=== PATIENT | male | born 1970 | race Caucasian/White ===

== ENCOUNTER 2017-10-12 20:05 | Emergency (ER) | payer OTHER ==
[2017-10-12 20:27] VITALS: BP 123/67; PULSE 79; RESP 18; TEMP 97.9; O2SAT 96
[2017-10-12] MEDS ORDERED: SERO300T PO (20:32)
[2017-10-12 21:03] LABS: AUTOMATED NEUTROPHIL # 3.8 TH/MM3 (1.8-7.7); BASOPHIL % 0.4 % (0.0-2.0); HEMATOCRIT 42.4 % (39.0-51.0); HEMOGLOBIN 15.3 GM/DL (13.0-17.0); LYMPH % 28.3 % (9.0-44.0); LYMPHOCYTE # 1.6 TH/MM3 (1.0-4.8); MEAN CELL VOLUME 101.3 FL (80.0-100.0); MEAN CORPUSCULAR HEMOGLOBIN 36.7 PG (27.0-34.0); MEAN PLATELET VOLUME 6.8 FL (7.0-11.0); MONO % 5.4 % (0.0-8.0); MONOCYTE # 0.3 TH/MM3 (0-0.9); NEUT % 65.9 % (16.0-70.0); PLATELET COUNT 182 TH/MM3 (150-450); RED BLOOD COUNT 4.18 MIL/MM3 (4.50-5.90); RED CELL DISTRIBUTION WIDTH 16.1 % (11.6-17.2); WHITE BLOOD COUNT 5.8 TH/MM3 (4.0-11.0)
[2017-10-12 21:07] LABS: MEAN CORPUSCULAR HGB CONC 36.2 % (32.0-36.0)
--- NOTE | 2017-10-12 21:12 | PD ---
HPI Chief Complaint: Psychiatric Symptoms Time Seen by Provider: 21:02 Travel History International Travel<30 days: No Contact w/Intl Traveler<30days: No Traveled to known affect area: No History of Present Illness HPI 47-year-old male presents to the ED under [facility] act for psychiatric evaluation. Patient states that he is feeling suicidal. He states that he hallucinates and sees shadows. He also states that he hears voices that tell him to kill himself. He states "if I had a gun and shoot myself." Per the [facility] paperwork the patient was kicked out of his sober living facility after he was found to be drinking. States his last drink was around 5 PM today. He states that he is noncompliant with Seroquel for about one month. He complains of sinus congestion and runny nose but denies any other somatic complaints. He denies any chronic health issues. He denies any illicit drug use. He is a current smoker. [facility] Past Medical History Depression: Yes Diminished Hearing: No Past Surgical History Surgical History: No Previous Surgery Social History Alcohol Use: Yes (DAILY ) Tobacco Use: No Substance Use: No Allergies-Medications (Allergen,Severity, Reaction): Coded Allergies: No Known Allergies (Unverified , 10/12/17) Reported Meds & Prescriptions Reported Meds & Active Scripts Active Reported Seroquel (Quetiapine Fumarate) 300 Mg Tab 300 Mg PO DAILY Review of Systems Except as stated in HPI: all other systems reviewed are Neg Physical Exam Narrative GENERAL: Well-nourished, well-developed white male in no acute distress. PSYCHIATRIC: Tearful, cooperative. SKIN: Focused skin assessment warm/dry. HEAD: Normocephalic. EYES: No scleral icterus. No injection or drainage. NECK: Supple, trachea midline. No JVD or lymphadenopathy. CARDIOVASCULAR: Regular rate and rhythm without murmurs, gallops, or rubs. RESPIRATORY: Breath sounds clear and equal bilaterally. No accessory muscle use. GASTROINTESTINAL: Abdomen soft, non-tender, nondistended. Active bowel sounds. MUSCULOSKELETAL: No cyanosis, or edema. BACK: Nontender without obvious deformity. No CVA tenderness. Data Data Last Documented VS Vital Signs Date Time Temp Pulse Resp B/P (MAP) Pulse Ox O2 Delivery O2 Flow Rate FiO2 10/12/17 22:03 73 16 99/56 (70) 10/12/17 20:27 97.9 96 Orders Orders Complete Blood Count With Diff (10/12/17 20:33) Comprehensive Metabolic Panel (10/12/17 20:33) Psych Screen (10/12/17 20:33) Drug Screen, Random Urine (10/12/17 20:33) Alcohol (Ethanol) (10/12/17 20:33) Salicylates (Aspirin) (10/12/17 20:33) Labs Laboratory Tests Test 10/12/17 20:36 White Blood Count 5.8 TH/MM3 Red Blood Count 4.18 MIL/MM3 Hemoglobin 15.3 GM/DL Hematocrit 42.4 % Mean Corpuscular Volume 101.3 FL Mean Corpuscular Hemoglobin 36.7 PG Mean Corpuscular Hemoglobin Concent 36.2 % Red Cell Distribution Width 16.1 % Platelet Count 182 TH/MM3 Mean Platelet Volume 6.8 FL Neutrophils (%) (Auto) 65.9 % Lymphocytes (%) (Auto) 28.3 % Monocytes (%) (Auto) 5.4 % Eosinophils (%) (Auto) 0.0 % Basophils (%) (Auto) 0.4 % Neutrophils # (Auto) 3.8 TH/MM3 Lymphocytes # (Auto) 1.6 TH/MM3 Monocytes # (Auto) 0.3 TH/MM3 Eosinophils # (Auto) 0.0 TH/MM3 Basophils # (Auto) 0.0 TH/MM3 CBC Comment AUTO DIFF Differential Comment AUTO DIFF CONFIRMED Blood Urea Nitrogen 14 MG/DL Creatinine 0.82 MG/DL Random Glucose 139 MG/DL Total Protein 7.3 GM/DL Albumin 3.8 GM/DL Calcium Level 8.4 MG/DL Alkaline Phosphatase 48 U/L Aspartate Amino Transf (AST/SGOT) 41 U/L Alanine Aminotransferase (ALT/SGPT) 24 U/L Total Bilirubin 0.5 MG/DL Sodium Level 142 MEQ/L Potassium Level 3.2 MEQ/L Chloride Level 104 MEQ/L Carbon Dioxide Level 25.9 MEQ/L Anion Gap 12 MEQ/L Estimat Glomerular Filtration Rate 101 ML/MIN Salicylates Level LESS THAN 1.7 MG/DL Urine Opiates Screen NEG Urine Barbiturates Screen NEG Urine Amphetamines Screen NEG Urine Benzodiazepines Screen NEG Urine Cocaine Screen NEG Urine Cannabinoids Screen NEG Ethyl Alcohol Level 261 MG/DL MDM Medical Decision Making Medical Screen Exam Complete: Yes Emergency Medical Condition: Yes Differential Diagnosis Alcohol intoxication versus Adjustment disorder versus anxiety versus bipolar versus depression versus dementia versus electrolyte disorder versus malingering versus mood disorder versus ODD versus psychosis versus PTSD versus schizophrenia versus schizoaffective disorder versus substance-induced mood disorder versus other Narrative Course 47-year-old male presents to the ED under [facility] act for psychiatric evaluation. Patient states that he is feeling suicidal. He states that he hallucinates and sees shadows. He also states that he hears voices that tell him to kill himself. He states "if I had a gun and shoot myself." Per the [facility] paperwork the patient was kicked out of his sober living facility after he was found to be drinking. States his last drink was around 5 PM today. He states that he is noncompliant with Seroquel for about one month. Vitals reviewed. Physical exam unremarkable. No concerning abnormalities of CBC, CMP, tox screen. Alcohol 261. Patient is medically clear for psychiatric evaluation. Diagnosis Primary Impression: Acute alcohol intoxication Additional Impression: Medical clearance for psychiatric admission Norah Newman Oct 12, 2017 21:12
[2017-10-12 21:13] LABS: ALBUMIN 3.8 GM/DL (3.4-5.0); AST (GOT) 41 U/L (15-37); BICARBONATE 25.9 MEQ/L (21.0-32.0); BLOOD UREA NITROGEN 14 MG/DL (7-18); CALCIUM 8.4 MG/DL (8.5-10.1); CHLORIDE 104 MEQ/L (98-107); CREATININE 0.82 MG/DL (0.60-1.30); GLOMERULAR FILTRATION RATE 101 ML/MIN (>89); GLUCOSE,RANDOM 139 MG/DL (74-106); SODIUM (NA) 142 MEQ/L (136-145)
[2017-10-12 21:14] LABS: ALT (GPT) 24 U/L (12-78)
[2017-10-12 21:16] LABS: ALKALINE PHOSPHATASE 48 U/L (45-117); TOTAL BILIRUBIN ADULT 0.5 MG/DL (0.2-1.0); TOTAL PROTEIN 7.3 GM/DL (6.4-8.2)
[2017-10-12 22:03] VITALS: BP 99/56; PULSE 73; RESP 16
[2017-10-13] MEDS ORDERED: ACETAMINOPHEN 325 MG TAB PO ONE
[2017-10-13] MEDS ORDERED: LORazepam 2 MG/ML VIAL IM ONE
[2017-10-13 02:00] VITALS: BP 132/77; PULSE 65; RESP 17; TEMP 99.3; O2SAT 99
[2017-10-13] MEDS ORDERED: POTASSIUM CHLORIDE 20 MEQ CONTROLLED RELEASE TAB PO ONE (04:30)
== END 2017-10-13 05:12 ==
LOC: NEDAMB 20:05 → NEPJ 10-13 05:12
DX: F10.129 Alcohol abuse with intoxication, unspecified (principal); Y90.8 Blood alcohol level of 240 mg/100 ml or more; Z91.19 Patient's noncompliance with other medical treatment and regimen
CPT/HCPCS: 80053; 80307; 85025; 96374; 99284; J2060